=== PATIENT | male | born 1940 | race Caucasian/White ===

== ENCOUNTER 2023-11-29 12:23 | Emergency (ER) | payer MEDICARE, BC, SELFPAY ==
[2023-11-29 12:51] VITALS: BP 116/64
[2023-11-29 13:18] LABS: % Basophils 0.4 % (0-2); % Eosinophils 2.4 % (0-6); % Immature Granulocytes 0.4 % (0-0.5); % Lymphocytes 14.1 % (20.5-51.1); % Neutrophils 73.7 % (42.2-75.2); Absolute Basophils 0.1 10^3/uL (0-0.2); Absolute Eosinophils 0.3 10^3/uL (0-0.7); Absolute Immature Granulocytes 0.1 10^3/uL (0-0.05); Absolute Lymphocytes 1.6 10^3/uL (1.2-3.4); Absolute Neutrophils 8.2 10^3/uL (1.4-6.5); Hematocrit 32.9 % (39.0-52.0); Hemoglobin 10.4 g/dL (13.0-18.0); Mean Corp Hgb Conc. 31.6 g/dL (33.0-37.0); Mean Corpuscular Volume 91.6 fL (80.0-94.0); Mean Platelet Volume 9.5 fL (7.4-10.4); Nucleated Red Blood Cells % 0 % (-); Platelet Count 122 10^3/uL (130-400); Red Blood Cell Count 3.59 10^6/uL (4.70-6.10); Red Cell Dist. Width 13.2 % (11.5-14.5); White Blood Cell Count 11.1 10^3/uL (4.8-10.8)
[2023-11-29 13:25] LABS: INR 0.94; PT 12.7 Sec (11.4-14.6)
[2023-11-29 13:26] LABS: APTT 33.3 Sec (23.4-35.0)
[2023-11-29 13:34] LABS: Blood Urea Nitrogen 27 mg/dl (9-20); Calcium 9.3 mg/dl (8.4-10.2); Carbon Dioxide 37 mmol/L (22-30); Chloride 97 mmol/L (98-107); Glucose 146 mg/dl (70-99); Sodium 137 mmol/L (135-145); eGFR > 60.00
[2023-11-29 13:57] LABS: Urine Albumin 3+ (Neg - Trace); Urine Bilirubin 1+ (Negative); Urine Character Slightly Cloudy (Clear); Urine Color Brown; Urine Glucose Negative (Negative); Urine Ketone 1+ (Negative); Urine Leukocyte Trace (Negative); Urine Nitrite Negative (Negative); Urine Occult Blood 4+ (Negative); Urine Urobilinogen Negative (Neg - 1+); Urine pH 6.5 (5.0-9.0)
[2023-11-29 14:42] LABS: Urine Red Blood Cell >100 /HPF (0-2)
--- NOTE | 2023-11-29 16:06 | ED.GENMED ---
History of Present Illness
General
Chief Complaint: Urinary Symptoms
Source: patient and spouse
Exam Limitations: none
Time Seen by Provider: 11/29/23 15:44
Nursing documentation reviewed up to this point in time: agreed with
Travel History
Have you had any contact with someone who has COVID-19?: No
Do you have any symptoms of coronavirus? Fever > 100 degrees, chills, cough, shortness of breath, sore throat, loss of taste or smell, muscle aches, or headache?: No
History of Present Illness
History of Present Illness:
Patient is an 83-year-old male with past medical history of hemophilia type A, aortic valve replacement(done at [facility]) 12/2022, chronic lung disease on 4 L nasal cannula oxygen on 81 mg of aspirin daily presents for hematuria. Patient started
with suprapubic discomfort last night around 8 PM and then developed hematuria at 3 AM. Patient has had several episodes of hematuria since. He reports it started out more looking ash/dark in color however the last time he urinated was bright
red blood.
reports pt was seen here 11/13/23 after having biopsy done his left upper arm. That time he had bleeding and did require his own factor.
Past History
Past History
ED Past Medical History: Other (Hemophilia A, hyperlipidemia, CAD, bypass, chronic sinus infections, GI bleed, chronic back pain, DJD, asbestosis)
ED Past Surgical History: Cardiac
Social History
Tobacco: Non-smoker
Alcohol: Occasional
Drug: None
Personal:
Living: with family
Family History
Family History: Other (Brother with hemophilia, dad with black lung and lung cancer)
Review of Systems
Review of Systems
Allergies reviewed?: Yes
All Other Systems: ROS reviewed and negative except as documented in HPI and ROS
Constitutional: Denies fever, fatigue or chills
EENT: Reports no symptoms
Respiratory: Reports no symptoms
ABD/GI: Reports abdominal pain and other (suprapubic discomfort)
: Reports bleeding
Musculoskeletal: Reports no symptoms
Skin: Reports no symptoms
Neurological: Reports no symptoms
Hematologic/Lymphatic: Reports no symptoms
Psychiatric: Reports no symptoms
Phy Exam
General Physical Exam
General Presentation: no apparent distress
General age: appears stated age
General Skin: warm and dry
General Habitus: normal
General Mental: alert
General Hydration: appears well hydrated
Gastrointestinal Exam
Gastrointestinal Exam: soft and other (minimal suprapubic tenderness )
Neurological Exam
Neurological Exam: alert and oriented x3
Musculoskeletal Exam
Musculoskeletal Exam: full ROM
Skin Exam
Skin Exam: normal color and warm/dry
Psychiatric Exam
Psychiatric Exam: normal mood/affect
Course
Orders/Labs/Results
Orders:
Orders
11/29/23 13:06
Type+Screen Urgent
Basic Metabolic Panel Urgent
Complete Blood Count/With Diff Urgent
PTT Urgent
Prothrombin Time Urgent
11/29/23 13:29
Urinalysis Reflex To Culture Urgent
Date Specimen was Collected: 11/29/23
Time Specimen was Collected: 13:02
Urine Microscopic Reflex Cult Urgent
11/29/23 16:05
CT Abd/pel Without Iv Or Oral Urgent
Comment:
Reason For Exam: hematuria /suprapubic pain
11/29/23 19:16
Diltiazem [Cardizem] 60 mg PO NOW STA
11/29/23 19:44
0.9% Sodium Chloride 1000 ml [Nss] 1,000 ml IV BOLUS
11/29/23 20:13
Potassium Urgent
Abnormal Lab Results
11/29/23 11/29/23
13:06 13:29
WBC 11.1 H 10^3/uL
(4.8-10.8)
RBC 3.59 L 10^6/uL
(4.70-6.10)
Hgb 10.4 L g/dL
(13.0-18.0)
Hct 32.9 L %
(39.0-52.0)
MCHC 31.6 L g/dL
(33.0-37.0)
Plt Count 122 L 10^3/uL
(130-400)
Abs Immat Gran (auto) 0.1 H 10^3/uL
(0-0.05)
Absolute Neuts (auto) 8.2 H 10^3/uL
(1.4-6.5)
Absolute Monos (auto) 1.0 H 10^3/uL
(0.1-0.6)
Lymphocytes % 14.1 L %
(20.5-51.1)
Chloride 97 L mmol/L
(98-107)
Carbon Dioxide 37 H mmol/L
(22-30)
BUN 27 H mg/dl
(9-20)
Glucose 146 H mg/dl
(70-99)
Urine Ketones 1+ A
(Negative)
Ur Occult Blood Reflex 4+ A
(Negative)
Urine Bilirubin 1+ A
(Negative)
Leukocyte Esterase Rfl Trace A
(Negative)
Urine RBC >100 A /HPF
(0-2)
Urine Albumin (Reflex) 3+ A
(Neg - Trace)
Antibody Screen Positive A
(Negative)
11/29/23 13:06
11/29/23 20:13
Vital Signs
Initial and Last Documented VS:
Initial Vital Signs
Temp Pulse Resp BP Pulse Ox
97.6 F 95 20 116/64 93
11/29/23 12:51 11/29/23 12:51 11/29/23 12:51 11/29/23 12:51 11/29/23 12:51
Last Documented Vital Signs
Temp Pulse Resp BP Pulse Ox
97.6 F 76 18 149/73 100
11/29/23 12:51 11/29/23 19:28 11/29/23 17:25 11/29/23 19:28 11/29/23 19:30
MDM/Problems Addressed
Differential Diagnosis Includes:
Not limited to hematuria, UTI pyelonephritis renal
MDM/Problems Addressed:
Pt presented to the ED w/ c/o of hematuria. Pt started w/ lower abdominal discomfort last night and started with hematuria 3 AM. He it was initially dark-colored urine however then he had episode of bright red blood. He is type a hemophilia. He
is followed at the [facility] at [facility]. His factor that he would need is Advate 20-25 mg units/kg . He last had to use it 2 wks ago for bleeding from wound to left upper arm
CAT scan does show a 9 mm obstructing calculus in the mid left ureter w/ mild left hydronephrosis mod left hydroureter .
Pt has been stable here in the ER in fact urine is now iced tea color which has improved. Patient does have greater than 100 RBCs in his urine. His hemoglobin is 10.4 which is improved from prior labs, his white count is 11.1, and platelets are
122. Patient's BUN is 27 he was given fluids here in the ER.
I spoke to Dr. Kruger , hematology on-call at [facility] who does recommend that patient be transferred there with his history of hemophilia and now hematuria due to large obstructive urethral stone.
Currently there are no beds. Patient will be transferred ER to ER.
Will hold off on factor as per hematology unless hematuria worsens.
Patient accepted ED physician is Dr. Gupta
Chronic conditions affecting care:
hemophilia type A
*Radiology
Radiology exam reviewed: radiology read reviewed
*Pulse Oximetry
Patient hypoxic: no
*Critical Care Note
Total Time (30-74mins, 75-104mins- exclusive of procedures): Not Applicable
Patient Management
Discussion with other providers: Chair Frame Builder (hematology At [facility] , DR Kruger )
ED Attending Note
-
Portions of this chart may have been created with voice recognition software.� Occasional wrong word or��sound alike� substitutions may have occurred due to the inherent limitations of voice recognition software.
Discharge Plan
Departure
Patient Disposition: Acute Care Hospital
Date of Disposition: 11/29/23
Time of Disposition: 20:13
Patient with high blood pressure during this ER visit?: Yes
Condition: Fair
Covid-19: Not Applicable
Discharge Problem:
Hematuria, Hemophilia, Calculus, ureteral
Prescriptions:
No Action
ezetimibe 10 mg tablet
10 mg PO DAILY
Repatha SureClick 140 mg/mL pen injector
140 mg SC Q2W
Rx Instructions:
take on the first and 16th of each month
ipratropium bromide 21 mcg (0.03 %) spray,non-aerosol
2 spray intranasal TIDPRN PRN (Reason: post nasal drip)
cetirizine [Zyrtec] 10 mg Tablet
10 mg PO DAILY
prednisone 5 mg Tablet
5 mg PO DAILY
aspirin 81 mg Tablet,Chewable
81 mg PO DAILY
midodrine 2.5 mg Tablet
2.5 mg PO BIDPRN PRN (Reason: SYSTOLIC BP <95)
Aspruzyo Sprinkle 500 mg Extend Release Granules,Packet
500 mg PO DAILY
pantoprazole 40 mg Tablet,Delayed Release (Dr/Ec)
40 mg PO BID Qty: 60 0RF
diltiazem HCl 60 mg Tablet
60 mg PO TID Qty: 90 0RF
ciprofloxacin HCl [Cipro] 500 mg tablet
500 mg PO BID Qty: 7 0RF
Referrals:
Apolinar Davis MD [Family Provider] -
Hospital Transfer
Other hospital: [facility]
I certify that the patient requires transfer: Yes
Discussed case with accepting physician: Dr Gupta
Reason for transfer: higher level of care
Interventions
Interventions:
*Nursing Disposition Last Done: 11/29/23 21:47
ED-Male Genitourinary Assessment Last Done: 11/29/23 19:34
[2023-11-29 17:25] VITALS: BP 152/71
[2023-11-29 17:27] VITALS: BP 152/71
[2023-11-29 18:00] VITALS: BP 150/72
[2023-11-29 19:00] VITALS: BP 149/73
[2023-11-29] MEDS: CARDIZEM 60 MG PO (19:28)
[2023-11-29 20:32] LABS: Potassium 3.9 mmol/L (3.5-5.1)
[2023-11-29] MEDS: NSS 1000 IV (20:49)
== END 2023-11-29 21:47 | disposition short-term general hospital (02) ==
LOC: EMR 12:23
PROVIDERS: Emergency Medicine; Nurse Practitioner; EMERGENCY PHYSICIAN Emergency Medicine; FAMILY PHYSICIAN Internal Medicine
DX: R10.30 Lower abdominal pain, unspecified (principal); R31.9 Hematuria, unspecified; D66 Hereditary factor VIII deficiency; N13.2 Hydronephrosis with renal and ureteral calculous obstruction; R03.0 Elevated blood-pressure reading, without diagnosis of hypertension; J98.4 Other disorders of lung; M19.90 Unspecified osteoarthritis, unspecified site; J61 Pneumoconiosis due to asbestos and other mineral fibers; G89.29 Other chronic pain; M54.9 Dorsalgia, unspecified; I25.10 Atherosclerotic heart disease of native coronary artery without angina pectoris; Z99.81 Dependence on supplemental oxygen; Z79.82 Long term (current) use of aspirin; Z95.1 Presence of aortocoronary bypass graft
CPT/HCPCS: 99285; 96360; 74176; 80048; 81003; 81015; 84132; 85025; 85610; 85730; 86850; 86870; 86900; 86901

== ENCOUNTER → 2024-01-16 13:48 | Outpatient (REF) | payer MEDICARE, BC, SELFPAY ==
[2024-01-16 14:15] LABS: % Basophils 0.5 % (0-2); % Eosinophils 2.8 % (0-6); % Immature Granulocytes 0.5 % (0-0.5); % Lymphocytes 14.5 % (20.5-51.1); % Monocytes 6.9 % (1.7-9.3); % Neutrophils 74.8 % (42.2-75.2); Absolute Basophils 0.1 10^3/uL (0-0.2); Absolute Eosinophils 0.3 10^3/uL (0-0.7); Absolute Immature Granulocytes 0.1 10^3/uL (0-0.05); Absolute Lymphocytes 1.7 10^3/uL (1.2-3.4); Absolute Monocytes 0.8 10^3/uL (0.1-0.6); Absolute Neutrophils 8.8 10^3/uL (1.4-6.5); Hematocrit 28.5 % (39.0-52.0); Hemoglobin 8.7 g/dL (13.0-18.0); Mean Corp Hgb Conc. 30.5 g/dL (33.0-37.0); Mean Corpuscular Hgb 28.4 pg (27.0-31.0); Mean Corpuscular Volume 93.1 fL (80.0-94.0); Mean Platelet Volume 9.3 fL (7.4-10.4); Nucleated Red Blood Cells % 0 % (-); Platelet Count 144 10^3/uL (130-400); Red Blood Cell Count 3.06 10^6/uL (4.70-6.10); Red Cell Dist. Width 13.6 % (11.5-14.5); White Blood Cell Count 11.8 10^3/uL (4.8-10.8)
[2024-01-16 14:32] LABS: Iron 76 ug/dl (49-181)
[2024-01-16 14:41] LABS: Percent Saturation 31 % (20-50); Total Iron Binding Capacity 244 ug/dl (261-462)
== END ==
LOC: REG 13:48
PROVIDERS: ATTENDING PHYSICIAN Internal Medicine Hematology; FAMILY PHYSICIAN Internal Medicine
DX: D66 Hereditary factor VIII deficiency (principal); D64.9 Anemia, unspecified
CPT/HCPCS: 36415; 82728; 83540; 83550; 85025

== ENCOUNTER → 2024-05-04 09:46 | Outpatient (REF) | payer MEDICARE, BC, SELFPAY | LOC: RAD 09:46 | PROVIDERS: ATTENDING PHYSICIAN Surgery Vascular Surgery; FAMILY PHYSICIAN Internal Medicine | DX: I71.43 Infrarenal abdominal aortic aneurysm, without rupture (principal) | CPT/HCPCS: 76770 ==

== ENCOUNTER → 2024-06-25 10:00 | Outpatient (REF) | payer MEDICARE, BC, SELFPAY ==
[2024-06-25 12:28] LABS: Blood Urea Nitrogen 28 mg/dl (9-20); Carbon Dioxide 40 mmol/L (22-30); Chloride 97 mmol/L (98-107); Glucose 125 mg/dl (70-99); HDL Cholesterol 60 mg/dl; LDL Cholesterol, Calculated 84 mg/dl; Potassium 4.3 mmol/L (3.5-5.1); Sodium 144 mmol/L (135-145); Total Cholesterol 163 mg/dl (50-199); Triglyceride 98 mg/dl (10-149); Very Low Density Lipoprotein 19 mg/dl (0-30); eGFR > 60.00
== END ==
LOC: REG 10:00
PROVIDERS: ATTENDING PHYSICIAN Surgery Vascular Surgery; FAMILY PHYSICIAN Internal Medicine; REFERRING PHYSICIAN Internal Medicine Cardiovascular Disease
DX: I25.10 Atherosclerotic heart disease of native coronary artery without angina pectoris (principal); E78.5 Hyperlipidemia, unspecified; I71.43 Infrarenal abdominal aortic aneurysm, without rupture
CPT/HCPCS: 36415; 80048; 80061

== ENCOUNTER → 2024-06-30 14:11 | Outpatient (REF) | payer MEDICARE, BC, SELFPAY | LOC: RAD 14:11 | PROVIDERS: ATTENDING PHYSICIAN Surgery Vascular Surgery; FAMILY PHYSICIAN Internal Medicine; REFERRING PHYSICIAN Internal Medicine Cardiovascular Disease | DX: I71.43 Infrarenal abdominal aortic aneurysm, without rupture (principal) | CPT/HCPCS: 74174; Q9967 ==

== ENCOUNTER → 2024-08-02 12:58 | Outpatient (REF) | payer MEDICARE, BC, SELFPAY | LOC: RAD 12:58 | PROVIDERS: ATTENDING PHYSICIAN Internal Medicine Critical Care Medicine; FAMILY PHYSICIAN Internal Medicine | DX: J84.9 Interstitial pulmonary disease, unspecified (principal) | CPT/HCPCS: 71046 ==

== ENCOUNTER → 2024-11-23 12:32 | Outpatient (REF) | payer OTHER, SELFPAY ==
[2024-11-23 13:56] LABS: Blood Urea Nitrogen 23 mg/dl (9-20); Calcium 9.5 mg/dl (8.4-10.2); Chloride 94 mmol/L (98-107); Glucose 133 mg/dl (70-99); Potassium 3.9 mmol/L (3.5-5.1); Sodium 140 mmol/L (135-145); eGFR > 60.00
[2024-11-23 14:06] LABS: Carbon Dioxide 33 mmol/L (22-30)
== END ==
LOC: REG 12:32
PROVIDERS: ATTENDING PHYSICIAN Surgery Vascular Surgery; FAMILY PHYSICIAN Internal Medicine; REFERRING PHYSICIAN Internal Medicine Cardiovascular Disease
DX: I71.43 Infrarenal abdominal aortic aneurysm, without rupture (principal)
CPT/HCPCS: 36415; 80048

== ENCOUNTER → 2024-11-29 13:52 | Outpatient (REF) | payer OTHER, SELFPAY | LOC: RAD 13:52 | PROVIDERS: ATTENDING PHYSICIAN Surgery Vascular Surgery; FAMILY PHYSICIAN Internal Medicine | DX: I71.40 Abdominal aortic aneurysm, without rupture, unspecified (principal) | CPT/HCPCS: 74174; Q9967 ==

== ENCOUNTER → 2025-01-26 09:11 | Outpatient (REF) | payer OTHER, SELFPAY ==
[2025-01-26 10:47] LABS: HDL Cholesterol 65 mg/dl; LDL Cholesterol, Calculated 70 mg/dl; Total Cholesterol 151 mg/dl (50-199); Triglyceride 82 mg/dl (10-149); Very Low Density Lipoprotein 16 mg/dl (0-30)
== END ==
LOC: REG 09:11
PROVIDERS: ATTENDING PHYSICIAN Internal Medicine Cardiovascular Disease; FAMILY PHYSICIAN Internal Medicine
DX: Z78.9 Other specified health status (principal); I25.10 Atherosclerotic heart disease of native coronary artery without angina pectoris; E78.00 Pure hypercholesterolemia, unspecified
CPT/HCPCS: 36415; 80061

== ENCOUNTER → 2025-05-31 12:16 | Outpatient (REF) | payer OTHER, SELFPAY | LOC: RCS 12:16 | PROVIDERS: ATTENDING PHYSICIAN Internal Medicine Critical Care Medicine; FAMILY PHYSICIAN Internal Medicine; REFERRING PHYSICIAN Internal Medicine Cardiovascular Disease | DX: J84.9 Interstitial pulmonary disease, unspecified (principal) | CPT/HCPCS: 71046; 93306; Q9950 ==

== ENCOUNTER → 2025-09-15 11:09 | Outpatient (REF) | payer OTHER, SELFPAY ==
[2025-09-15 12:45] LABS: Blood Urea Nitrogen 20 mg/dl (9-20); Calcium 9.4 mg/dl (8.4-10.2); Chloride 94 mmol/L (98-107); Glucose 153 mg/dl (70-99); Potassium 4.4 mmol/L (3.5-5.1); Sodium 140 mmol/L (135-145); eGFR > 60.00
[2025-09-15 13:49] LABS: Carbon Dioxide 39 mmol/L (22-30)
== END ==
LOC: REG 11:09
PROVIDERS: ATTENDING PHYSICIAN Surgery Vascular Surgery; FAMILY PHYSICIAN Internal Medicine; REFERRING PHYSICIAN Internal Medicine Cardiovascular Disease
DX: I71.40 Abdominal aortic aneurysm, without rupture, unspecified (principal)
CPT/HCPCS: 36415; 80048

== ENCOUNTER → 2025-09-27 12:56 | Outpatient (REF) | payer OTHER, SELFPAY | LOC: RAD 12:56 | PROVIDERS: ATTENDING PHYSICIAN Surgery Vascular Surgery; FAMILY PHYSICIAN Internal Medicine; REFERRING PHYSICIAN Internal Medicine Critical Care Medicine | DX: I71.43 Infrarenal abdominal aortic aneurysm, without rupture (principal) | CPT/HCPCS: 74174; Q9967 ==